=== PATIENT | male | born 1945 | race Caucasian/White ===

== ENCOUNTER 2016-08-30 04:02 | Emergency (ER) | payer OTHER ==
[2016-08-30 04:12] VITALS: BP 203/104; PULSE 84; TEMP 97.7; BMI 30.4
--- NOTE | 2016-08-30 04:14 | PDOC ---
History of Present Illness - General Chief Complaint: Pain, Acute Stated Complaint: HEADACHE/HYPERTENSION Time Seen by Provider: 08/30/16 04:14 History Source: Patient Exam Limitations: No Limitations - History of Present Illness Initial Comments: 08/30/16 04:21 This is a 71-year-old male comes in complaining of elevated blood pressure. Patient had a headache this evening and I went to bed and woke up several hours later with a his headache still he realized he hadn't taken his blood pressure medication so he took his blood pressure medication and his headache improved. But did not resolve so comes in for patient denies any chest pain shortness of breath, neurological complaints. PAST MEDICAL HISTORY: no significant history PAST SURGICAL HISTORY: no significant history FAMILY HISTORY: no pertinant history SOCIAL HISTORY: Pt lives with family and is employed. MEDICATIONS: reviewed ALLERGIES: As per nursing notes Review of Systems General: No fevers or chills, no weakness, no weight loss HEENT: No change in vision. No sore throat,. No ear pain CardioVascular: No chest pain or shortness of breath Respiratory:No cough, or wheezing. Gastrointestinal: no nausea, vomitting, diarrhea or constipation, No rectal bleeding Genitourinary: No dysuria, hematuria, or frequency Musculoskeletal: No joint or muscle pain or swelling Neurologic: No headache, vertigo, dizziness or loss of consciousness Psychiatric: nor depression Skin: No rashes or easy bruising Endocrine: no increased thirst or abnormal weight change Allergic: no skin or latex allergy All other systems reviewed and normal Exam: General: Well-nourished well-developed individual, no acute distress HEENT: Throat: Normal, tonsils normal, no erythema or exudate Neck: Supple, no meningeal signs, no lymphadenopathy Eyes::Pupils equal reactive and round, extraocular motion intact Chest: Nontender to palpation Cardiac: S1-S2 normal, regular rate and rhythm, no murmurs rubs or gallops Respiratory: Lungs clear to auscultation bilateral Abdomen: Soft, nondistended, normal bowel sounds, nontender to palpation diffusely Extremities: Warm, dry, no cyanosis, clubbing, or edema Skin: No rashes Neuro: Alert and oriented x3, nonfocal exam, grossly intact, normal gait Psych: Normal mood and affect Assessment and plan: This is 71-year-old male and elevated blood pressure and a mild headache. Patient given clonidine here in the ER and discharged home. Patient will follow-up with his primary care doctor today 08/30/16 04:25 Past History - Past Medical History Allergies/Adverse Reactions: Allergies Allergy/AdvReac Type Severity Reaction Status Date / Time No Known Allergies Allergy Verified 08/30/16 04:04 Home Medications: Ambulatory Orders Aspirin [ASA -] 81 mg PO DAILY 12/21/12 Atorvastatin Ca [Lipitor (Restricted To Cardiology)] 20 mg PO HS 12/21/12 Metformin HCl 500 mg PO DAILY 04/25/16 Clonidine HCl 0.2 mg PO ONCE #1 tablet 08/30/16 Olmesartan/Hydrochlorothiazide [Benicar Hct 40-25 mg Tablet] 1 each PO DAILY Cardiac Disorders: Yes (STENT X1) Diabetes: Yes HTN: Yes Hypercholesterolemia: Yes - Immunization History Td Vaccination: Yes Immunization Up to Date: No - Psycho/Social/Smoking Cessation Hx Anxiety: No Suicidal Ideation: No Smoking Status: Yes Smoking History: Former smoker Have you smoked in the past 12 months: No Number of Cigarettes Smoked Daily: 0 Information on smoking cessation initiated: No Hx Alcohol Use: No Drug/Substance Use Hx: No Substance Use Type: None *Physical Exam - Vital Signs Last Vital Signs Temp Pulse Resp BP Pulse Ox 97.7 F 84 16 203/104 98 08/30/16 04:09 08/30/16 04:09 08/30/16 04:09 08/30/16 04:09 08/30/16 04:09 *DC/Admit/Observation/Transfer Diagnosis at time of Disposition: Elevated blood pressure - Discharge Dispostion Disposition: HOME Condition at time of disposition: Stable - Patient Instructions Additional Instructions: Take the pressure he can take a Dose of your Benicar. For the headache U can take Tylenol Return to the emergency department immediately with ANY new, persistent or worsening symptoms. Continue any medications as previously prescribed by your physician. You should follow up with your primary doctor as soon as possible regarding today's emergency department visit. . Please make sure your doctor reviews the results of your emergency evaluation. Thank you for coming to the Emergency Department today for your care. It was a pleasure to see you today. Please note that your evaluation is INCOMPLETE until you follow-up with your doctor.
[2016-08-30] MEDS ORDERED: cloNIDine HCL 0.1 MG TABLET ONE (04:21)
[2016-08-30] MEDS ORDERED: cloNIDine HCL 0.1 MG TABLET PO ONE (04:27)
== END 2016-08-30 04:30 | disposition home or self-care (01) ==
LOC: FER 04:02
DX: I10 Essential (primary) hypertension (principal); Z87.891 Personal history of nicotine dependence; Z95.5 Presence of coronary angioplasty implant and graft; E11.9 Type 2 diabetes mellitus without complications; E78.00 Pure hypercholesterolemia, unspecified
CPT/HCPCS: 99281-25

== ENCOUNTER 2017-01-02 08:14 | Inpatient (IN) | payer OTHER ==
--- NOTE | 2017-01-02 08:23 | PDOC ---
History of Present Illness - General Chief Complaint: Headache Stated Complaint: HTN,HEADACHE Time Seen by Provider: 01/02/17 08:15 History Source: Patient Exam Limitations: No Limitations - History of Present Illness Initial Comments: 01/02/17 08:30 The patient is a 71-year-old male with a significant past medical history of hypertension, hyperlipidemia, type 2 diabetes, history of stroke, who presents to the emergency department with a mild headache and hypertension noted at home. He states that his usual blood pressure ranges 120-140/60-90. He states that he forgot to take his Benicar yesterday. He woke this morning with a mild headache, took his blood pressure, and noted to be 200 systolic. He does not recall the diastolic. He had no other symptoms. Specifically, he denies chest pain, back pain, neck pain, extremity weakness or paresthesias, abdominal pain, flank pain, hematuria, visual changes. He took his Benicar this morning, and at this time, his headache has almost completely resolved. He denies alcohol use, illegal drug use, dietary noncompliance. He does have regular stress in his life secondary to his job. Past History - Past Medical History Allergies/Adverse Reactions: Allergies Allergy/AdvReac Type Severity Reaction Status Date / Time No Known Allergies Allergy Verified 01/02/17 08:15 Home Medications: Ambulatory Orders Aspirin [ASA -] 81 mg PO DAILY 12/21/12 Atorvastatin Ca [Lipitor (Restricted To Cardiology)] 20 mg PO HS 12/21/12 Metformin HCl 500 mg PO DAILY 04/25/16 Olmesartan/Hydrochlorothiazide [Benicar Hct 40-25 mg Tablet] 1 each PO DAILY Cardiac Disorders: Yes (STENT X1) Diabetes: Yes HTN: Yes Hypercholesterolemia: Yes - Immunization History Td Vaccination: Yes Immunization Up to Date: No - Psycho/Social/Smoking Cessation Hx Anxiety: No Suicidal Ideation: No Smoking Status: Yes Smoking History: Former smoker Have you smoked in the past 12 months: No Number of Cigarettes Smoked Daily: 0 Hx Alcohol Use: No Drug/Substance Use Hx: No Substance Use Type: None Review of Systems - Review of Systems Comments:: 01/02/17 08:31 CONSTITUTIONAL: Absent: fever, chills, diaphoresis, generalized weakness, malaise, loss of appetite HEENT: Absent: rhinorrhea, nasal congestion, throat pain, throat swelling, difficulty swallowing, mouth swelling, ear pain, eye pain, visual Changes CARDIOVASCULAR: Absent: chest pain, loss of consciousness, palpitations, irregular heart rate, peripheral edema RESPIRATORY: Absent: cough, shortness of breath, dyspnea with exertion, orthopnea, wheezing, stridor, hemoptysis GASTROINTESTINAL: Absent: abdominal pain, abdominal distension, nausea, vomiting, diarrhea, constipation, melena, hematochezia GENITOURINARY: Absent: dysuria, frequency, urgency, hesitancy, hematuria, flank pain, genital pain MUSCULOSKELETAL: Absent: myalgia, arthralgia, joint swelling SKIN: Absent: rash, itching, pallor HEMATOLOGIC/IMMUNOLOGIC: Absent: easy bleeding, easy bruising, lymphadenopathy, frequent infections ENDOCRINE: Absent: unexplained weight gain, unexplained weight loss, heat intolerance, cold intolerance NEUROLOGIC: Present: headache Absent: focal weakness or paresthesias, dizziness, unsteady gait, seizure, mental status changes, bladder or bowel incontinence PSYCHIATRIC: Absent: anxiety, depression, suicidal or homicidal ideation, hallucinations. *Physical Exam - Physical Exam Comments: 01/02/17 08:31 GENERAL: Well developed, well nourished. Awake and alert. No acute distress. HEENT: Normocephalic, atraumatic. PERRLA, EOMI. No conjunctival pallor. Sclera are non- icteric. Moist mucous membranes. Oropharynx is clear. Normal fundal exam. NECK: Supple. Full ROM. No JVD. Carotid pulses 2+ and symmetric, without bruits. No thyromegaly. No lymphadenopathy. CARDIOVASCULAR: Regular rate and rhythm. No murmurs, rubs, or gallops. Distal pulses are 2+ and symmetric. PULMONARY: No evidence of respiratory distress. Lungs clear to auscultation bilaterally. No wheezing, rales or rhonchi. ABDOMINAL: Soft. Non-tender. Non-distended. No rebound or guarding. No organomegaly. Normoactive bowel sounds. MUSCULOSKELETAL Normal range of motion at all joints. No bony deformities or tenderness. No CVA tenderness. EXTREMITIES: No cyanosis. No clubbing. No edema. No calf tenderness. SKIN: Warm and dry. Normal capillary refill. No rashes. No jaundice. NEUROLOGICAL: Alert, awake, appropriate. Cranial nerves 2-12 intact. No deficits to light touch and temperature in face, upper extremities and lower extremities. No motor deficits in the in face, upper extremities and lower extremities. Normoreflexic in the upper and lower extremities. Normal speech. Toes are down- going bilaterally. Gait is normal without ataxia. PSYCHIATRIC: Cooperative. Good eye contact. Appropriate mood and affect. Heart Score/ECG Review - ECG Intrepretation Comment:: 01/02/17 08:53 Normal sinus rhythm at 78, normal axis, normal intervals, no ST changes ED Treatment Course - LABORATORY CBC & Chemistry Diagram: 01/02/17 09:05 01/02/17 09:05 Medical Decision Making - Medical Decision Making 01/02/17 08:32 The patient is well-appearing and in no acute distress Hypertension noted His headache is most completely resolved Will obtain labs, chest x-ray, EKG, head CT, will observe I suspect that his hypertension was secondary to noncompliance with his Benicar yesterday, and that it will improve as he took his Benicar this morning 01/02/17 09:02 Chest x-ray emergency Department interpretation: Mild cardiomegaly, no evidence of pneumothorax or pneumomediastinum. Cardiomediastinal silhouette does not show widening CT pending Labs pending 01/02/17 09:35 CT report noted Chest x-ray report noted CBC noted Chemistries pending His headache has completely resolved He is now completely asymptomatic 01/02/17 10:02 Chemistries noted, with evidence of acute kidney injury Urinalysis noted, with trace hematuria This could be secondary to hypertension Clinical impression: Acute kidney injury Hypertension Possible and organ damage of the kidney secondary to hypertension Case discussed in detail with admitting provider including history, physical exam and ancillary studies. Admitting physician has assumed care for the patient, will follow all pending diagnostics and will complete the evaluation and treatment. *DC/Admit/Observation/Transfer Diagnosis at time of Disposition: Hypertension, Headache, Acute kidney injury - Discharge Dispostion Condition at time of disposition: Improved Admit: Yes - Patient Instructions Printed Discharge Instructions: DI for High Blood Pressure, DI for Headache Additional Instructions: It is very important that you take your medications daily, as prescribed. Return to the emergency department immediately with ANY new, persistent or worsening symptoms. You MUST call and follow up with your doctor tomorrow. Please make sure your doctor reviews the results of your emergency department evaluation.
[2017-01-02 08:44] VITALS: BMI 28.1
[2017-01-02 09:23] LABS: URINE APPEARANCE Clear; URINE BILIRUBIN Negative (NEGATIVE); URINE BLOOD Trace-lysed (NEGATIVE); URINE GLUCOSE (UA) Negative (NEGATIVE); URINE KETONE Negative (NEGATIVE); URINE LEUK ESTERASE Negative (NEGATIVE); URINE NITRITE Negative (NEGATIVE); URINE UROBILINOGEN 0.2 E.U/dl (0.2-1.0)
[2017-01-02 09:28] LABS: EOSINOPHIL 1.2 % (0-4.5); MCH 34.2 pg (25.7-33.7); MCHC 34.7 g/dl (32.0-35.9); MEAN CELL VOLUME 98.6 fl (80-96); MEAN PLT VOLUME 7.9 fl (7.5-11.1); NEUTROPHILS 71.2 % (42.8-82.8); PLATELET COUNT 275 K/MM3 (134-434); RDW 11.6 % (11.9-15.9); WHITE BLOOD COUNT 7.9 K/mm3 (4.0-10.8)
[2017-01-02 09:36] LABS: URINE COLOR YELLOW; URINE PROTEIN 1+ (NEGATIVE)
[2017-01-02 09:39] LABS: INR 1.02 (0.82-1.09); PROTHROMBIN TIME (PATIENT) 11.4 SEC (10.2-13.0)
[2017-01-02 09:44] LABS: ALBUMIN 4.5 g/dl (3.5-5.0); ALK PHOS 49 U/L (32-92); BILIRUBIN,TOTAL 0.5 mg/dl (0.2-1.0); CALCIUM 9.4 mg/dl (8.4-10.2); CPK(DFH) 81 IU/L (38-174); CREATININE 1.5 mg/dl (0.6-1.3); GLUCOSE,RANDOM 146 mg/dl (74-106); MAGNESIUM 1.7 mg/dL (1.8-2.4); SGOT/AST 89 U/L (10-42); SGPT/ALT 97 U/L (10-40)
[2017-01-02 10:06] LABS: TROPONIN I (DFP) < 0.03 ng/ml (0.03-0.50)
[2017-01-02] MEDS ORDERED: SODIUM CHLORIDE 1,000 ML IV SCH ×2 (10:15→12:48)
[2017-01-02 10:21] LABS: URIC ACID CRYSTALS MANY /hpf (NONE SEEN); URINE WBC 0-3 (3-5)
--- NOTE | 2017-01-02 11:10 | HP ---
CHIEF COMPLAINT: headache PCP: [facility] pcp-->pt is requesting a referral for pcp HISTORY OF PRESENT ILLNESS: Patient is a 71 y/o male with a past medical history of hypertension, hyperlipidemia, NIDDM, CVA, CAD (stent x 2004). Patient reports he awoke this AM with a mild headache. He describes the pain as a dull ache to the center of the head. He was alarmed since he does not suffer from headaches, he took his blood pressure at home and noted his systolic blood pressure to be in the 200's systolic. Patient did not take his blood pressure medication yesterday and reports ongoing stress at work. He reports taking benicar this am with some resolution of the headache and as a result sought evaluation in the emergency department. ER course was notable for: (1) ct of head no evidence of acute intracranial pathology (2) b/p 189/91 (3)creatine 1.5 Recent Travel: none PAST MEDICAL HISTORY: see hpi PAST SURGICAL HISTORY: see hpi Social History: resides at home, trust and estates paralegal of a [employer] Smoking: none Alcohol:none Drugs: none Family History: mother (niddm) father (cad) Allergies No Known Allergies Allergy (Verified 01/02/17 08:15) HOME MEDICATIONS: Home Medications Medication Instructions Recorded Aspirin [ASA -] 81 mg PO DAILY 12/21/12 Atorvastatin Ca [Lipitor 20 mg PO HS 12/21/12 (Restricted To Cardiology)] Metformin HCl 500 mg PO DAILY 04/25/16 Olmesartan/Hydrochlorothiazide 1 each PO DAILY 08/30/16 [Benicar Hct 40-25 mg Tablet] REVIEW OF SYSTEMS CONSTITUTIONAL: Absent: fever, chills, diaphoresis, generalized weakness, malaise, loss of appetite, weight change HEENT: Absent: rhinorrhea, nasal congestion, throat pain, throat swelling, difficulty swallowing, mouth swelling, ear pain, eye pain, visual changes CARDIOVASCULAR: Absent: chest pain, syncope, palpitations, irregular heart rate, lightheadedness , peripheral edema RESPIRATORY: Absent: cough, shortness of breath, dyspnea with exertion, orthopnea, wheezing, stridor, hemoptysis GASTROINTESTINAL: Absent: abdominal pain, abdominal distension, nausea, vomiting, diarrhea, constipation, melena, hematochezia GENITOURINARY: Absent: dysuria, frequency, urgency, hesitancy, hematuria, flank pain, genital pain MUSCULOSKELETAL: Absent: myalgia, arthralgia, joint swelling, back pain, neck pain SKIN: Absent: rash, itching, pallor HEMATOLOGIC/IMMUNOLOGIC: Absent: easy bleeding, easy bruising, lymphadenopathy, frequent infections ENDOCRINE: Absent: unexplained weight gain, unexplained weight loss, heat intolerance, cold intolerance NEUROLOGIC: Present: headache Absent:, focal weakness or paresthesias, dizziness, unsteady gait, seizure, mental status changes, bladder or bowel incontinence PSYCHIATRIC: Absent: anxiety, depression, suicidal or homicidal ideation, hallucinations. PHYSICAL EXAMINATION Vital Signs - 24 hr 01/02/17 01/02/17 08:14 09:48 Temperature 98.1 F 98.1 F Pulse Rate [ 73 Right] Respiratory 20 20 Rate Blood Pressure 189/91 Blood Pressure 157/84 [Left Arm] O2 Sat by Pulse 100 100 Oximetry (%) GENERAL: Awake, alert, and fully oriented, in no acute distress. HEAD: Normal with no signs of trauma. EYES: Pupils equal, round and reactive to light, extraocular movements intact, sclera anicteric, conjunctiva clear. No lid lag. EARS, NOSE, THROAT: Ears normal, nares patent, oropharynx clear without exudates. dry mucous membranes. NECK: Normal range of motion, supple without lymphadenopathy, JVD, or masses. LUNGS: Breath sounds equal, clear to auscultation bilaterally. No wheezes, and no crackles. No accessory muscle use. HEART: Regular rate and rhythm, normal S1 and S2 without murmur, rub or gallop. ABDOMEN: Soft, nontender, not distended, normoactive bowel sounds, no guarding, no rebound, no masses. No hepatomegaly or splenomegaly. MUSCULOSKELETAL: Normal range of motion at all joints. No bony deformities or tenderness. No CVA tenderness. UPPER EXTREMITIES: 2+ pulses, warm, well-perfused. No cyanosis. No clubbing. No peripheral edema. LOWER EXTREMITIES: 2+ pulses, warm, well-perfused. No calf tenderness. No peripheral edema. NEUROLOGICAL: Cranial nerves II-XII intact. Normal speech. Normal gait. PSYCHIATRIC: Cooperative. Good eye contact. Appropriate mood and affect. SKIN: Warm, dry, normal turgor, no rashes or lesions noted, normal capillary refill. Laboratory Results - last 24 hr 01/02/17 01/02/17 01/02/17 09:05 09:05 09:05 WBC 7.9 RBC 4.99 Hgb 17.0 H Hct 49.2 H MCV 98.6 H MCHC 34.7 RDW 11.6 L Plt Count 275 MPV 7.9 Neutrophils % 71.2 Lymphocytes % 20.2 Monocytes % 5.4 Eosinophils % 1.2 Basophils % 2.0 D INR 1.02 BUN 38 H D Creatinine 1.5 H D Creat Clearance w eGFR 46.40 Random Glucose 146 H Calcium 9.4 Magnesium 1.7 L Total Bilirubin 0.5 D AST 89 H D ALT 97 H D Alkaline Phosphatase 49 D Creatine Kinase Troponin I Total Protein 8.0 Albumin 4.5 Urine Color Urine Appearance Urine pH Ur Specific [place] Urine Protein Urine Glucose (UA) Urine Ketones Urine Blood Urine Nitrite Urine Bilirubin Urine Urobilinogen Ur Leukocyte Esterase Urine RBC Urine WBC Ur Epithelial Cells Uric Acid Crystals 01/02/17 01/02/17 09:05 09:11 WBC RBC Hgb Hct MCV MCHC RDW Plt Count MPV Neutrophils % Lymphocytes % Monocytes % Eosinophils % Basophils % INR BUN Creatinine Creat Clearance w eGFR Random Glucose Calcium Magnesium Total Bilirubin AST ALT Alkaline Phosphatase Creatine Kinase 81 Troponin I < 0.03 L Total Protein Albumin Urine Color Yellow Urine Appearance Clear Urine pH 5.0 Ur Specific [place] >= 1.030 H Urine Protein 1+ H Urine Glucose (UA) Negative Urine Ketones Negative Urine Blood Trace-lysed Urine Nitrite Negative Urine Bilirubin Negative Urine Urobilinogen 0.2 e.u/dl Ur Leukocyte Esterase Negative Urine RBC 3-5 Urine WBC 0-3 Ur Epithelial Cells 0-3 Uric Acid Crystals Many ASSESSMENT/PLAN: 1) card CAD stent x 1 (2004) - continue lipitor and asa - pt reports stress test was 6 months ago at [facility], which was negative as per patient - troponin x 1 wnl hypertension - continue diovan (subsition for [employer]), will hold hctz due to adolfo - b/p at goal 2) neph adolfo - creatine 1.5, pt appears dehydrated on exam, NS x 1 liter given in ED, then gentle iv hydration, repeat bmp at 1500 - hold hctz and metformin - pending renal ultrasound 3) endo niddm -hold metformin due to adolfo, pending hemoglobin a1c f/e/n - low sodium/carb diet - replete magnesium ppx - zantac - oob dispo: requires observation admission Problem List - Problem (1) Acute kidney injury Code(s): N17.9 - ACUTE KIDNEY FAILURE, UNSPECIFIED (2) Hypertension Code(s): I10 - ESSENTIAL (PRIMARY) HYPERTENSION Qualifiers: Hypertension type: essential hypertension Qualified Code(s): I10 - Essential (primary) hypertension (3) Elevated blood pressure Code(s): I10 - ESSENTIAL (PRIMARY) HYPERTENSION Visit type - Emergency Visit Emergency Visit: Yes ED Registration Date: 01/02/17 Care time: The patient presented to the Emergency Department on the above date and was hospitalized for further evaluation of their emergent condition. - New Patient This patient is new to me today: Yes Date on this admission: 01/02/17 - Critical Care Critical Care patient: No
[2017-01-02 11:32] LABS: ANION GAP 16 (8-16); CO2 19 mmol/L (22-28)
[2017-01-02] MEDS ORDERED: VALSARTAN 160 MG TABLET (UD) PO SCH (11:45)
[2017-01-02] MEDS ORDERED: ZOLPIDEM TARTRATE 5 MG TABLET PO PRN (12:11)
[2017-01-02] MEDS ORDERED: ACETAMINOPHEN 325 MG TABLET (FP) PO PRN (12:11)
[2017-01-02] MEDS ORDERED: MAGNESIUM SULF 50% (8.12 MEQ/2 ML-1 GM VIAL) IVPB ONE (13:15)
[2017-01-02] MEDS ORDERED: MAGNESIUM SULF 50% (8.12 MEQ/2 ML-1 GM VIAL) ONE (13:26)
[2017-01-02 16:00] LABS: CPK(DFH) 83 IU/L (38-174)
[2017-01-02 16:16] LABS: ANION GAP 11 (8-16); CALCIUM 9.2 mg/dl (8.4-10.2); CO2 24 mmol/L (22-28); CREATININE 1.5 mg/dl (0.6-1.3); GLUCOSE,RANDOM 129 mg/dl (74-106)
[2017-01-02 18:01] LABS: TROPONIN I (DFP) < 0.03 ng/ml (0.03-0.50)
[2017-01-02] MEDS: ATORVASTATIN CA 20 MG TABLET (FP) PO SCH (21:49)
[2017-01-02] MEDS: RANITIDINE HCL 150 MG TABLET (FP) PO SCH (21:49)
[2017-01-02] MEDS ORDERED: VALSARTAN 160 MG TABLET (UD) PO ONE (23:10)
[2017-01-03] MEDS: ALPRAZolam 0.25 MG TABLET PO PRN ×2 (08:26→21:46)
[2017-01-03] MEDS: ASPIRIN 81 MG CHEWABLE TABLETS PO SCH (10:19)
[2017-01-03] MEDS: RANITIDINE HCL 150 MG TABLET (FP) PO SCH ×2 (10:20→21:46)
[2017-01-03] MEDS: VALSARTAN 160 MG TABLET (UD) PO SCH (10:20)
[2017-01-03 10:52] LABS: GLUCOSE,RANDOM 206 mg/dl (74-106)
[2017-01-03 10:53] LABS: ANION GAP 9 (8-16); CALCIUM 8.9 mg/dl (8.4-10.2); CO2 25 mmol/L (22-28); CREATININE 1.5 mg/dl (0.6-1.3)
[2017-01-03] MEDS: amLODIPine BESYLATE 5 MG TABLET (FP) PO SCH (12:27)
--- NOTE | 2017-01-03 12:35 | CONSULT ---
Consult Consult Specialty:: Nephrology ( Conner/ Stefano) Reason for Consultation:: Abnormal Kidney functions. Elevated BP - History of Present Illness Chief Complaint: Many thanks for the courtesy of this consult referral. 71 y/o [place] Male admitted with headache, and with accelerated Hypertension. Noted is also elevated Serum Creatinine. History of Present Illness: The patient is a Gut [employer], and reports that he was on Benicar- HCT, that he forgot to take a few days prior to coming to the Hospital. Denies any nocturia. Claims that he is compliant with diet, Sodium restriction and " taking care of himself". Denies any chest pain. Has h/o CAD, S/P PTIC several years ago. Has h/o long standing Hypertension. 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 ). No: BPH, Hematuria Psych: No: Addictions Endocrine: No: Diabetes Mellitus - Alcohol/Substance Use Hx Alcohol Use: No - Smoking History Smoking history: Former smoker Have you smoked in the past 12 months: No Aproximately how many cigarettes per day: 0 Home Medications - Allergies Allergies/Adverse Reactions: Allergies Allergy/AdvReac Type Severity Reaction Status Date / Time No Known Allergies Allergy Verified 01/02/17 08:15 - Home Medications Home Medications: Ambulatory Orders Aspirin [ASA -] 81 mg PO DAILY 12/21/12 Atorvastatin Ca [Lipitor (Restricted To Cardiology)] 20 mg PO HS 12/21/12 Metformin HCl 500 mg PO DAILY 04/25/16 Olmesartan/Hydrochlorothiazide [Benicar Hct 40-25 mg Tablet] 1 each PO DAILY Review of Systems - Review of Systems HENT: reports: Other (Headache) Neck: reports: No Symptoms Cardiovascular: denies: Chest Pain, Edema, Palpitations Respiratory: denies: Cough, Hemoptysis, Orthopnea Gastrointestinal: denies: Abdominal Pain Genitourinary: denies: Burning, Dysuria, Flank Pain, Hematuria, Incontinence Musculoskeletal: denies: Back Pain Integumentary: reports: No Symptoms Neurological: reports: No Symptoms Physical Exam Vital Signs: Vital Signs Temperature 98.0 F 01/03/17 08:27 Pulse Rate 75 01/03/17 08:27 Respiratory Rate 20 01/03/17 08:59 Blood Pressure 174/86 01/03/17 08:27 O2 Sat by Pulse Oximetry (%) 98 01/03/17 08:59 Constitutional: Yes: Well Nourished, No Distress Eyes: Yes: Conjunctiva Clear HENT: Yes: Normocephalic Neck: Yes: Supple, Trachea Midline Cardiovascular: Yes: S1, S2 Respiratory: Yes: Regular, CTA Bilaterally. No: Rales, Rhonchi Gastrointestinal: Yes: Normal Bowel Sounds, Soft, Abdomen, Obese. No: Palpable Mass, Tenderness Renal/: No: CVA Tenderness - Left, CVA Tenderness - Right Musculoskeletal: No: Back Pain, Joint Stiffness, Muscle Pain Labs: CBC, BMP 01/03/17 09:10 Problem List - Problems (1) Acute kidney injury Code(s): N17.9 - ACUTE KIDNEY FAILURE, UNSPECIFIED (2) Headache Code(s): R51 - HEADACHE (3) Hypertension Code(s): I10 - ESSENTIAL (PRIMARY) HYPERTENSION Qualifiers: Hypertension type: essential hypertension Qualified Code(s): I10 - Essential (primary) hypertension (4) Accelerated hypertension Code(s): I10 - ESSENTIAL (PRIMARY) HYPERTENSION (5) Erythrocytosis Code(s): D75.1 - SECONDARY POLYCYTHEMIA Assessment/Plan 71 y/o male from [place] admitted with accelerated Hypertension, possibly due to skipping his medications for many days. BP remains elevated. Will add Amlodipine to the current regimen of Diovan. Will hold Diuretics for now. Elevated Hgb/ Hct. >?? sign of Dehydration. If persists will need to evaluate. The Patients azotemia most likely id Chronic Kidney Disease from long standing Hypertension. A superimposed LOKI can not be totally overlooked. Hypertension: Suboptimally controlled. Will require additional agents. Concur with addition of Amlodipine. Renal sonogram reported as normal. 2 Gm Na Diet Basic w/u as ordered. Thanks again. Will follow with you.
[2017-01-03 12:49] LABS: URINE CREATININE 27.6 mg/dL (20-370)
--- NOTE | 2017-01-03 14:44 | EKG ---
Test Reason : Blood Pressure : / mmHG Vent. Rate : 075 BPM Atrial Rate : 075 BPM P-R Int : 174 ms QRS Dur : 086 ms QT Int : 378 ms P-R-T Axes : 053 030 044 degrees QTc Int : 422 ms NORMAL SINUS RHYTHM NO PREVIOUS ECGS AVAILABLE Confirmed by MD KRISHNAN MARJORY ([id number]) on 01/03/2017 2:44:00 PM Referred By: VALORIE Confirmed By:BRYANNA KRISHNAN MD
[2017-01-03] MEDS ORDERED: ZOLPIDEM TARTRATE 5 MG TABLET PO PRN (16:22)
--- NOTE | 2017-01-03 16:23 | PN ---
Physical Exam: SUBJECTIVE: Patient seen and examined, patient reports feeling very anxious wants to go home, denies any headache, chest pain or shortness of breath. OBJECTIVE:Patient is a 71 y/o male with a past medical history of hypertension, hyperlipidemia, NIDDM, CVA, CAD (stent x 2004). patient was admitted from the emergency department for adolfo and uncontrolled hypertension. Vital Signs Period Temp Pulse Resp BP Sys/Brooks Pulse Ox Last 24 Hr 98.0 F-98.5 F 57-75 18-20 151-178/66-86 98-100 GENERAL: The patient is awake, alert, and fully oriented, anxious. HEAD: Normal with no signs of trauma. EYES: PERRL, extraocular movements intact, sclera anicteric, conjunctiva clear. No ptosis. ENT: Ears normal, nares patent, oropharynx clear without exudates, moist mucous membranes. NECK: Trachea midline, full range of motion, supple. LUNGS: Breath sounds equal, clear to auscultation bilaterally, no wheezes, no crackles, no accessory muscle use. HEART: Regular rate and rhythm, S1, S2 without murmur, rub or gallop. ABDOMEN: Soft, nontender, nondistended, normoactive bowel sounds, no guarding, no rebound, no hepatosplenomegaly, no masses. EXTREMITIES: 2+ pulses, warm, well-perfused, no edema. NEUROLOGICAL: Cranial nerves II through XII grossly intact. Normal speech, gait not observed. PSYCH: Normal mood, normal affect. SKIN: Warm, dry, normal turgor, no rashes or lesions noted Laboratory Results - last 24 hr 01/02/17 01/02/17 01/03/17 15:00 15:00 09:10 Sodium 135 L 131 L Potassium 5.3 H 4.6 Chloride 100 97 L Carbon Dioxide 24 D 25 Anion Gap 11 9 BUN 40 H 36 H Creatinine 1.5 H 1.5 H Random Glucose 129 H 206 H D Calcium 9.2 8.9 Creatine Kinase 83 Troponin I < 0.03 L Urine Protein Urine Osmolality Urine Creatinine 01/03/17 01/03/17 11:50 11:50 Sodium Potassium Chloride Carbon Dioxide Anion Gap BUN Creatinine Random Glucose Calcium Creatine Kinase Troponin I Urine Protein 5 Urine Osmolality 214 L Urine Creatinine 27.6 Active Medications Generic Name Dose Route Start Last Admin Trade Name Freq PRN Reason Stop Dose Admin Acetaminophen 650 mg 01/02/17 12:11 Tylenol - PO Q4H PRN PAIN OR FEVER Alprazolam 0.5 mg 01/03/17 08:06 01/03/17 08:26 Xanax - PO 0.5 mg Q8H PRN Administration ANXIETY Amlodipine Besylate 5 mg 01/03/17 12:00 01/03/17 12:27 Norvasc - PO 5 mg DAILY PAPO Administration Aspirin 81 mg 01/03/17 10:00 01/03/17 10:19 Asa - PO 81 mg DAILY PAPO Administration Atorvastatin Calcium 20 mg 01/02/17 22:00 01/02/17 21:49 Lipitor - PO 20 mg HS PAPO Administration Ranitidine HCl 150 mg 01/02/17 22:00 01/03/17 10:20 Zantac - PO 150 mg BID PAPO Administration Valsartan 320 mg 01/03/17 10:00 01/03/17 10:20 Diovan - PO 320 mg DAILY PAPO Administration Zolpidem Tartrate 5 mg 01/02/17 12:11 Ambien - PO HS PRN INSOMNIA ASSESSMENT/PLAN: 1) card CAD stent x 1 (2004) - continue lipitor and asa - pt reports stress test was 6 months ago at [facility], which was negative as per patient - troponin x 3 wnl hypertension - continue diovan (subsition for benicar), continue to hctz due to adolfo - b/p remains elevated, will add norvasc -pending echo 2) neph adolfo - creatine 1.5, unchanged after IV hydration. likely secondary to - hold hctz and metformin - renal ultrasound no hydronephrosis, no acute pathology 3) endo niddm -hold metformin due to adolfo, pending hemoglobin a1c f/e/n - diabetic diet - replete electroylytes prn PPX - oob - zantac dispo: requires inpatient telemetry Problem List - Problems (1) Acute kidney injury Code(s): N17.9 - ACUTE KIDNEY FAILURE, UNSPECIFIED (2) Hypertension Code(s): I10 - ESSENTIAL (PRIMARY) HYPERTENSION Qualifiers: Hypertension type: essential hypertension Qualified Code(s): I10 - Essential (primary) hypertension (3) Elevated blood pressure Code(s): I10 - ESSENTIAL (PRIMARY) HYPERTENSION Visit type - Emergency Visit Emergency Visit: Yes ED Registration Date: 01/02/17 Care time: The patient presented to the Emergency Department on the above date and was hospitalized for further evaluation of their emergent condition. - New Patient This patient is new to me today: No - Critical Care Critical Care patient: No - Discharge Referral Referred to [facility] No
[2017-01-03] MEDS: ATORVASTATIN CA 20 MG TABLET (FP) PO SCH (21:46)
[2017-01-04 06:27] VITALS: BP 146/75; PULSE 56; TEMP 97.5
[2017-01-04 08:58] LABS: ALBUMIN 4.4 g/dl (3.5-5.0); ALK PHOS 56 U/L (32-92); ANION GAP 10 (8-16); BILIRUBIN,TOTAL 0.7 mg/dl (0.2-1.0); CALCIUM 9.8 mg/dl (8.4-10.2); CO2 26 mmol/L (22-28); CREATININE 1.2 mg/dl (0.6-1.3); GLUCOSE,RANDOM 151 mg/dl (74-106); SGOT/AST 178 U/L (10-42); SGPT/ALT 112 U/L (10-40); TOT PROT 7.7 g/dl (6.4-8.3); URIC ACID 6.4 mg/dl (2.6-7.2)
--- NOTE | 2017-01-04 10:30 | PN ---
Progress Note (short form) - Note Progress Note: Renal Follow up for LOKI/Hypertension Pt seen and examined at the bedside awake and alert getting ECHO no acute complaints good urine output Vital Signs Temperature 97.5 F L 01/04/17 06:00 Pulse Rate 56 L 01/04/17 06:00 Respiratory Rate 18 01/04/17 06:00 Blood Pressure 146/75 01/04/17 06:00 O2 Sat by Pulse Oximetry (%) 98 01/04/17 08:44 Intake & Output 01/01/17 01/02/17 01/03/17 01/04/17 23:59 23:59 23:59 23:59 Intake Total 750 250 500 Balance 750 250 500 Weight 185 lb Gen: NAD CVS: RRR Lungs: CTA Abd: soft NT/ND Ext: No edema CBC, BMP 01/02/17 09:05 01/04/17 08:00 Current Medications Acetaminophen (Tylenol -) 650 mg PO Q4H PRN PRN Reason: PAIN OR FEVER Alprazolam (Xanax -) 0.5 mg PO Q8H PRN PRN Reason: ANXIETY Last Admin: 01/03/17 21:46 Dose: 0.5 mg Amlodipine Besylate (Norvasc -) 5 mg PO DAILY [facility] Last Admin: 01/03/17 12:27 Dose: 5 mg Aspirin (Asa -) 81 mg PO DAILY [facility] Last Admin: 01/03/17 10:19 Dose: 81 mg Atorvastatin Calcium (Lipitor -) 20 mg PO HS [facility] Last Admin: 01/03/17 21:46 Dose: 20 mg Ranitidine HCl (Zantac -) 150 mg PO BID [facility] Last Admin: 01/03/17 21:46 Dose: 150 mg Valsartan (Diovan -) 320 mg PO DAILY [facility] Last Admin: 01/03/17 10:20 Dose: 320 mg Zolpidem Tartrate (Ambien -) 10 mg PO HS PRN PRN Reason: INSOMNIA Last Admin: 01/03/17 21:46 Dose: 10 mg A/P 71 year old Gentleman with PMhx of Hypertension, CAD, CKD who presented with Hypertensive urgency and LOKI #Acute Kidney Injury secondary to volume depletion Renal function now much improved would maintain off HCTZ Continue Diovan and Amlopdine on discharge encouraged good oral hydration avoid nsaids for now to follow up in the office in 1-2 weeks with repeat labs #Hypertension BP improved and acceptable continue Diovan 320mg and Amlodipine 5mg Low salt diet Titrate BP meds as needed as outpatient Thank you Dave Agarwal DO
[2017-01-04] MEDS: RANITIDINE HCL 150 MG TABLET (FP) PO SCH (10:44)
[2017-01-04] MEDS: VALSARTAN 160 MG TABLET (UD) PO SCH (10:44)
[2017-01-04] MEDS: amLODIPine BESYLATE 5 MG TABLET (FP) PO SCH (10:44)
[2017-01-04] MEDS: ASPIRIN 81 MG CHEWABLE TABLETS PO SCH (10:44)
[2017-01-04 12:24] LABS: BASOPHIL 1.2 % (0-2.0); EOSINOPHIL 1.1 % (0-4.5); MCH 33.4 pg (25.7-33.7); MCHC 34.2 g/dl (32.0-35.9); MEAN CELL VOLUME 97.7 fl (80-96); MEAN PLT VOLUME 8.1 fl (7.5-11.1); NEUTROPHILS 79.4 % (42.8-82.8); PLATELET COUNT 232 K/MM3 (134-434); RDW 11.5 % (11.9-15.9); WHITE BLOOD COUNT 6.6 K/mm3 (4.0-10.8)
--- NOTE | 2017-01-04 12:30 | DS ---
Physical Exam: SUBJECTIVE: Patient seen and examined, reports feeling well, denies any headache. OBJECTIVE:Patient is a 71 y/o male with a past medical history of hypertension, hyperlipidemia, NIDDM, CVA, CAD (stent x , 2004). Patient reports he awoke this AM with a mild headache. He describes the pain as a dull ache to the center of the head. He was alarmed since he does not suffer from headaches, he took his blood pressure at home and noted his systolic blood pressure to be in the 200's systolic. Patient did not take his blood pressure medication yesterday and reports ongoing stress at work. He reports taking benicar this am with some resolution of the headache and as a result sought evaluation in the emergency department. ER course was notable for: (1) ct of head no evidence of acute intracranial pathology (2) b/p 189/91 (3)creatine 1.5 Vital Signs Period Temp Pulse Resp BP Sys/Brooks Pulse Ox Last 24 Hr 97.5 F-98.6 F 52-62 18-20 144-156/53-75 97-99 PHYSICAL EXAM GENERAL: The patient is awake, alert, and fully oriented, in no acute distress. HEAD: Normal with no signs of trauma. EYES: PERRL, extraocular movements intact, sclera anicteric, conjunctiva clear. ENT: Ears normal, nares patent, oropharynx clear without exudates, moist mucous membranes. NECK: Trachea midline, full range of motion, supple. LUNGS: Breath sounds equal, clear to auscultation bilaterally, no wheezes, no crackles, no accessory muscle use. HEART: Regular rate and rhythm, S1, S2 without murmur, rub or gallop. ABDOMEN: Soft, nontender, nondistended, normoactive bowel sounds, no guarding, no rebound, no hepatosplenomegaly, no masses. EXTREMITIES: 2+ pulses, warm, well-perfused, no edema. NEUROLOGICAL: Cranial nerves II through XII grossly intact. Normal speech, gait not observed. PSYCH: Normal mood, normal affect. SKIN: Warm, dry, normal turgor, no rashes or lesions noted. LABS Laboratory Results - last 24 hr 01/04/17 01/04/17 01/04/17 08:00 08:00 08:00 WBC RBC Hgb Hct MCV MCHC RDW Plt Count MPV Neutrophils % Lymphocytes % Monocytes % Eosinophils % Basophils % Sodium 134 L Potassium 4.5 Chloride 98 Carbon Dioxide 26 Anion Gap 10 BUN 28 H D Creatinine 1.2 Creat Clearance w eGFR > 60 Random Glucose 151 H D Hemoglobin A1c % 7.0 H Uric Acid 6.4 Calcium 9.8 Magnesium 1.9 Total Bilirubin 0.7 D AST 178 H D ALT 112 H Alkaline Phosphatase 56 Total Protein 7.7 Albumin 4.4 01/04/17 11:50 WBC 6.6 RBC 4.67 Hgb 15.6 Hct 45.6 MCV 97.7 H MCHC 34.2 RDW 11.5 L Plt Count 232 MPV 8.1 Neutrophils % 79.4 Lymphocytes % 13.9 D Monocytes % 4.4 Eosinophils % 1.1 Basophils % 1.2 Sodium Potassium Chloride Carbon Dioxide Anion Gap BUN Creatinine Creat Clearance w eGFR Random Glucose Hemoglobin A1c % Uric Acid Calcium Magnesium Total Bilirubin AST ALT Alkaline Phosphatase Total Protein Albumin HOSPITAL COURSE: Date of Admission:01/03/17 Date of Discharge: 01/04/17 Minutes to complete discharge: 45 Discharge Summary Reason For Visit: HYPERTENSION Current Active Problems Accelerated hypertension (Acute) Acute kidney injury (Acute) Erythrocytosis (Acute) Headache (Acute) Hypertension (Acute) Condition: Improved - Instructions Diet, Activity, Other Instructions: It is very important that you take your medications daily, as prescribed. Return to the emergency department immediately with ANY new, persistent or worsening symptoms. You MUST call and follow up with your doctor tomorrow. Please make sure your doctor reviews the results of your emergency department evaluation. - Home Medications Comprehensive Discharge Medication List: Ambulatory Orders Aspirin [ASA -] 81 mg PO DAILY 12/21/12 Atorvastatin Ca [Lipitor (Restricted To Cardiology)] 20 mg PO HS 12/21/12 Metformin HCl 500 mg PO DAILY 04/25/16 Olmesartan/Hydrochlorothiazide [Benicar Hct 40-25 mg Tablet] 1 each PO DAILY Problem List - Problems (1) Acute kidney injury Code(s): N17.9 - ACUTE KIDNEY FAILURE, UNSPECIFIED (2) Hypertension Code(s): I10 - ESSENTIAL (PRIMARY) HYPERTENSION Qualifiers: Hypertension type: essential hypertension Qualified Code(s): I10 - Essential (primary) hypertension (3) Elevated blood pressure Code(s): I10 - ESSENTIAL (PRIMARY) HYPERTENSION - Discharge Referral Referred to [facility] No
[2017-01-04 15:02] LABS: FREE T4 0.96 ng/dl (0.76-1.16); THYROID STIMULATING HORMONE 2.52 uIU/ml (0.358-3.74)
== END 2017-01-04 13:15 | disposition home or self-care (01) | DRG 305 ==
LOC: FER 08:14 → FM/S 13:03 → INTOOBSV 13:03 → OBSVTOIN 01-03 13:26
PROVIDERS: ADMIT Internal Medicine; ATTEND Nurse Practitioner Family
DX: I16.0 Hypertensive urgency (principal); N17.9 Acute kidney failure, unspecified; E78.5 Hyperlipidemia, unspecified; Z87.891 Personal history of nicotine dependence; I25.10 Atherosclerotic heart disease of native coronary artery without angina pectoris; Z86.73 Personal history of transient ischemic attack (TIA), and cerebral infarction without residual deficits; E86.0 Dehydration; Z79.84 Long term (current) use of oral hypoglycemic drugs; D75.1 Secondary polycythemia; E11.22 Type 2 diabetes mellitus with diabetic chronic kidney disease; I12.9 Hypertensive chronic kidney disease with stage 1 through stage 4 chronic kidney disease, or unspecified chronic kidney disease; N18.9 Chronic kidney disease, unspecified; E86.9 Volume depletion, unspecified
CPT/HCPCS: 36415; 70450-TC; 71010-TC; 76775-TC; 80048; 80053; 81003; 81015; 82550; 82570; 83036; 83735; 83935; 84156; 84439; 84443; 84480; 84484; 84550; 85025; 85610; 93005; 93306-TC; 99283-25; G0378

== ENCOUNTER 2017-02-09 21:06 | Emergency (ER) | payer OTHER ==
--- NOTE | 2017-02-09 21:29 | PDOC ---
History of Present Illness - General History Source: Patient Exam Limitations: No Limitations - History of Present Illness Initial Comments: 02/09/17 21:57 The patient is a 71 year old male, with significant past medical history of HTN , HLD, diabetes, stroke, who presents to the emergency room complaining of a bilateral temporal headache that began 1 hour ago. He states that this is similar to the headache that he experiences when his blood pressure is high. He checked his blood pressure at home (normally 120/80 as per patient) and states that it was elevated so he took Enalapril. He notes that his blood pressure medications were recently switched from Enalapril to both Norvasc and Diovan. However, he ran out of the Norvasc and Diovan two days ago. Denies lightheadedness, dizziness. Denies frequent headaches. Denies chest pain, SOB. Allergies: no known allergies PCP: Dr. Caruso <Johnna Mann - Last Filed: 02/09/17 22:03> <Sweta Wolfe - Last Filed: 02/10/17 02:46> - General Chief Complaint: Headache Stated Complaint: HEADACHE Time Seen by Provider: 02/09/17 21:12 Past History <Johnna Mann - Last Filed: 02/09/17 22:03> - Past Medical History Cardiac Disorders: Yes (STENT X1) Diabetes: Yes HTN: Yes Hypercholesterolemia: Yes - Immunization History Td Vaccination: Yes Immunization Up to Date: No - Psycho/Social/Smoking Cessation Hx Anxiety: No Suicidal Ideation: No Smoking Status: Yes Smoking History: Former smoker Have you smoked in the past 12 months: No Number of Cigarettes Smoked Daily: 0 Hx Alcohol Use: No Drug/Substance Use Hx: No Substance Use Type: None <Sweta Wolfe - Last Filed: 02/10/17 02:46> - Past Medical History Allergies/Adverse Reactions: Allergies Allergy/AdvReac Type Severity Reaction Status Date / Time No Known Allergies Allergy Verified 01/02/17 08:15 Home Medications: Ambulatory Orders Aspirin [ASA -] 81 mg PO DAILY 12/21/12 Atorvastatin Ca [Lipitor] 20 mg PO HS 12/21/12 Metformin HCl 500 mg PO DAILY 04/25/16 Acetaminophen [Tylenol .Regular Strength -] 650 mg PO Q4H PRN #0 tablet Amlodipine Besylate [Norvasc -] 5 mg PO DAILY #30 tablet 01/04/17 Ranitidine [Zantac -] 150 mg PO BID tablet 01/04/17 Alprazolam [Xanax] 0.5 mg PO DAILY PRN 02/09/17 Enalapril Maleate [Vasotec] 20 mg PO DAILY 02/09/17 Enalapril Maleate [Vasotec] 20 mg PO DAILY 02/09/17 Valsartan [Diovan] 160 mg PO BID 02/09/17 Valsartan [Diovan] 160 mg PO BID #60 tablet 02/09/17 Zolpidem Tartrate [Ambien] 10 mg PO HS PRN 02/09/17 Review of Systems - Review of Systems Able to Perform ROS?: Yes Comments:: 02/09/17 21:57 CONSTITUTIONAL: Present: bilateral temporal headache Absent: fever, no chills, no fatigue EYES: Absent: visual changes ENT: Absent: ear pain, no sore throat CARDIOVASCULAR: Absent: chest pain, no palpitations RESPIRATORY: Absent: cough, no SOB GI: Absent: abdominal pain, no nausea, no vomiting, no constipation, no diarrhea SKIN: Absent: rash <Abby Mannica - Last Filed: 02/09/17 22:03> *Physical Exam - Vital Signs Last Vital Signs Temp Pulse Resp BP Pulse Ox 98.6 F 118 H 16 187/102 95 02/09/17 21:07 02/09/17 21:07 02/09/17 21:07 02/09/17 21:07 02/09/17 21:07 - Physical Exam Comments: 02/09/17 22:00 GENERAL: The patient is awake, alert, and fully oriented. +anxious HEAD: Normal with no signs of trauma. EYES: Pupils equal, round and reactive to light, extraocular movements intact, sclera anicteric, conjunctiva clear with no pallor. LUNGS: Breath sounds equal, clear to auscultation bilaterally. No wheeze/ crackles. HEART: +slightly tachycardic. Regular rhythm, normal S1 and S2 without murmur or rub. ABDOMEN: Soft/nontender/nondistended. BS wnl. No guarding or rebound. No palpable masses. No hepatosplenomegaly. EXTREMITIES: 1+ pitting edema of the ankles bilaterally. Normal range of motion. No clubbing or cyanosis. No cords, erythema, or tenderness. NEUROLOGICAL: Cranial nerves II through XII grossly intact. Normal speech, normal gait. PSYCH: Normal mood, normal affect. SKIN: Warm, Dry, normal turgor, no rashes or lesions noted. <Johnna Mann - Last Filed: 02/09/17 22:03> ED Treatment Course - Medications Given in the ED: ED Medications Discontinued Medications Generic Name Dose Route Start Last Admin Trade Name Doc PRN Reason Stop Dose Admin Acetaminophen 650 mg 02/09/17 21:36 02/09/17 21:38 Tylenol - PO 02/09/17 21:37 650 mg ONCE ONE Administration <Johnna Mann - Last Filed: 02/09/17 22:03> - LABORATORY CBC & Chemistry Diagram: 02/09/17 22:40 02/09/17 22:40 <Sweta Wolfe - Last Filed: 02/10/17 02:46> Progress Note - Progress Note Progress Note: Documentation has been prepared under my direction and personally reviewed by me in its entirety. I attest that this documented accurately reflects all work, treatment, procedures and medical decision making performed by me. <Sweta Wolfe - Last Filed: 02/10/17 02:46> Medical Decision Making - Medical Decision Making As noted above, this 71-year-old man with a history of hypertension presents with a few hour history of headache and elevated blood pressure (measured on home monitor). Patient states that he has not taken his Norvasc/Diovan in 2 days because he ran out of medication and his general medical doctor (Dr. Caruso) is currently on vacation. He has not had any recent trauma and denies associated symptoms. Exam as noted shows blood pressure to be moderately elevated (187/102) with no evidence of end organ sequelae of hypertension or neurologic focal deficits CBC/chem profile is essentially normal except for mild hyponatremia and mild prerenal azotemia. Patient given Diovan 160 mg by mouth as well as Tylenol 650 mg by mouth. After approximately 90 minutes, patient reports complete resolution of his headache. Repeat blood pressure measurement is normal (124/71) Patient will be discharged with instructions to continue his medications as prescribed (refill of his medications at previous dose that she is decided to his pharmacy). He should make plans to call Dr. Caruso within the next few days to determine when she is returning from her vacation and to follow-up with her soon after that. He should return to the emergency room if he has persistent severe headache/shortness of breath/chest pain or persistent high blood pressure <Sweta Wolfe - Last Filed: 02/10/17 02:46> *DC/Admit/Observation/Transfer - Attestations Scribe Attestion: 02/09/17 21:58 Documentation prepared by DERIAN Vuaghan, acting as medical case worker for Sweta Wolfe MD. <Johnna Mann - Last Filed: 02/09/17 22:03> <Sweta Wolfe - Last Filed: 02/10/17 02:46> Diagnosis at time of Disposition: Hypertension Qualifiers: Hypertension type: essential hypertension Qualified Code(s): I10 - Essential ( primary) hypertension Headache, acute Qualifiers: Headache type: unspecified Intractability: not intractable Qualified Code(s): R51 - Headache - Discharge Dispostion Disposition: HOME Condition at time of disposition: Stable - Prescriptions Prescriptions: Valsartan [Diovan] 160 mg PO BID #60 tablet - Referrals Referrals: Zonia Caruso MD [Primary Care Provider] - - Patient Instructions Printed Discharge Instructions: High Blood Pressure Additional Instructions: Continue medications as prescribed Tylenol as needed for headache Call Dr. Caruso to arrange follow-up within the next 5 days Return to ER if you have severe headache, chest pain, shortness of breath or persistent high blood pressure
[2017-02-09] MEDS ORDERED: ACETAMINOPHEN 325 MG TABLET (FP) PO ONE (21:36)
[2017-02-09] MEDS ORDERED: ACETAMINOPHEN 325 MG TABLET (FP) ONE (21:37)
[2017-02-09 21:44] VITALS: TEMP 98.6; BMI 30.4
[2017-02-09] MEDS ORDERED: VALSARTAN 160 MG TABLET (UD) PO ONE (22:01)
[2017-02-09 23:02] LABS: EOSINOPHIL 0.9 % (0-4.5); MCH 32.5 pg (25.7-33.7); MCHC 35.8 g/dl (32.0-35.9); MEAN CELL VOLUME 90.9 fl (80-96); NEUTROPHILS 72.3 % (42.8-82.8); PLATELET COUNT 239 K/MM3 (134-434); RDW 11.3 % (11.9-15.9); WHITE BLOOD COUNT 7.6 K/mm3 (4.0-10.8)
[2017-02-09 23:09] LABS: ALBUMIN 4.2 g/dl (3.5-5.0); ALK PHOS 45 U/L (32-92); ANION GAP 10 (8-16); BILIRUBIN,TOTAL 0.4 mg/dl (0.2-1.0); CALCIUM 8.6 mg/dl (8.4-10.2); CO2 24 mmol/L (22-28); CPK 87 IU/L (39-308); CREATININE 0.8 mg/dl (0.6-1.3); GLUCOSE,RANDOM 190 mg/dl (74-106); SGOT/AST 41 U/L (10-42); SGPT/ALT 44 U/L (10-40)
[2017-02-09 23:21] LABS: TROPONIN I (DFP) < 0.03 ng/ml (0.03-0.50)
[2017-02-09 23:49] VITALS: BP 124/71; PULSE 89
--- NOTE | 2017-02-10 13:22 | EKG ---
Test Reason : Blood Pressure : / mmHG Vent. Rate : 105 BPM Atrial Rate : 105 BPM P-R Int : 174 ms QRS Dur : 080 ms QT Int : 346 ms P-R-T Axes : 043 025 046 degrees QTc Int : 457 ms SINUS TACHYCARDIA OTHERWISE NORMAL ECG WHEN COMPARED WITH ECG OF 02-JAN-2017 08:50, NO SIGNIFICANT CHANGE WAS FOUND Confirmed by SPENSER MCCLELLAND MD ([id number]) on 02/10/2017 1:21:46 PM Referred By: DR ROSAS Confirmed By:SPENSER MCCLELLAND MD
== END 2017-02-10 | disposition home or self-care (01) ==
LOC: FER 21:06
DX: I10 Essential (primary) hypertension (principal); R51 Headache; E78.5 Hyperlipidemia, unspecified; E11.9 Type 2 diabetes mellitus without complications; Z86.73 Personal history of transient ischemic attack (TIA), and cerebral infarction without residual deficits; Z87.891 Personal history of nicotine dependence
CPT/HCPCS: 36415; 80053; 84484; 85025; 93005; 99282-25

== ENCOUNTER 2022-12-19 11:50 | Emergency (ER) | payer OTHER, MEDICARE ==
[2022-12-19 11:57] VITALS: PULSE 80; RESP 18; TEMP 98.1; BMI 30.4
[2022-12-19 12:39] VITALS: BP 157/78
== END 2022-12-19 13:05 | disposition home or self-care (01) ==
LOC: JER 11:50
DX: I10 Essential (primary) hypertension (principal)
CPT/HCPCS: 82962; 93005; 93010; 99283-25